=== PATIENT | female | born 2000 | race Caucasian/White ===

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

== ENCOUNTER 2022-10-23 07:26 | Outpatient (CLI) | payer MEDICAID, SELFPAY ==
--- NOTE | 2022-10-23 07:34 | XR_ITS ---
WS: [id number] Exam: XR knees AP WB w LT lmt ORTH Date/Time of Exam: 10/23/2022 7:35 AM Reason For Exam: left knee pain LEFT knee. No fracture or dislocation. The joint compartments are well preserved. No joint effusion. Normal soft tissues. AP and lateral images of the RIGHT knee are normal. IMPRESSION: 1. Normal RIGHT and LEFT knees.
== END 2022-10-23 07:27 | disposition home or self-care (01) ==
PROVIDERS: Visit Provider Student in an Organized Health Care Education/Training Program
DX: M25.562 Pain in left knee (principal); M25.561 Pain in right knee
CPT/HCPCS: 73560; 73565

== ENCOUNTER → 2023-07-07 07:51 | Outpatient (BNVA) | payer MEDICAID, SELFPAY | PROVIDERS: Visit Provider Nurse Practitioner Women's Health | DX: Z34.90 Encounter for supervision of normal pregnancy, unspecified, unspecified trimester (principal); N92.6 Irregular menstruation, unspecified | CPT/HCPCS: 80307; 81000; 81025; 84443; 85025; 86592; 86762; 86803; 86850; 86900; 87086; 87340; 87491; 87591; 87806 ==

== ENCOUNTER → 2023-07-20 12:10 | Outpatient (BNVA) | payer MEDICAID, SELFPAY | PROVIDERS: Visit Provider Obstetrics & Gynecology | DX: Z01.419 Encounter for gynecological examination (general) (routine) without abnormal findings (principal); Z34.90 Encounter for supervision of normal pregnancy, unspecified, unspecified trimester | CPT/HCPCS: 81000; 87624 ==

== ENCOUNTER → 2023-07-28 07:57 | Outpatient (BNVA) | payer MEDICAID, SELFPAY | PROVIDERS: Visit Provider Obstetrics & Gynecology | DX: Z34.90 Encounter for supervision of normal pregnancy, unspecified, unspecified trimester (principal) | CPT/HCPCS: 76815 ==

== ENCOUNTER → 2023-08-17 08:03 | Outpatient (BNVA) | payer MEDICAID, SELFPAY | PROVIDERS: Visit Provider Obstetrics & Gynecology | DX: Z34.90 Encounter for supervision of normal pregnancy, unspecified, unspecified trimester (principal) | CPT/HCPCS: 81000 ==

== ENCOUNTER → 2023-08-28 09:50 | Outpatient (BNVA) | payer MEDICAID, SELFPAY | PROVIDERS: Visit Provider Obstetrics & Gynecology | DX: Z34.90 Encounter for supervision of normal pregnancy, unspecified, unspecified trimester (principal) | CPT/HCPCS: 76805 ==

== ENCOUNTER → 2023-10-07 11:57 | Outpatient (BNVA) | payer MEDICAID, SELFPAY | PROVIDERS: Visit Provider Obstetrics & Gynecology | DX: Z34.90 Encounter for supervision of normal pregnancy, unspecified, unspecified trimester (principal) | CPT/HCPCS: 82950; 84315 ==

== ENCOUNTER → 2023-11-03 10:18 | Outpatient (BNVA) | payer MEDICAID, SELFPAY | PROVIDERS: Visit Provider Obstetrics & Gynecology | DX: Z34.90 Encounter for supervision of normal pregnancy, unspecified, unspecified trimester (principal) | CPT/HCPCS: 81000 ==

== ENCOUNTER → 2023-11-17 12:24 | Outpatient (BNVA) | payer MEDICAID, SELFPAY | PROVIDERS: Visit Provider Obstetrics & Gynecology | DX: Z36.4 Encounter for antenatal screening for fetal growth retardation (principal); Z3A.34 34 weeks gestation of pregnancy | CPT/HCPCS: 76816 ==

== ENCOUNTER → 2023-12-01 10:33 | Outpatient (BNVA) | payer MEDICAID, SELFPAY | PROVIDERS: Visit Provider Obstetrics & Gynecology | DX: Z34.90 Encounter for supervision of normal pregnancy, unspecified, unspecified trimester (principal) | CPT/HCPCS: 81000; 87081 ==

== ENCOUNTER → 2023-12-21 08:29 | Outpatient (BNVA) | payer MEDICAID, SELFPAY | PROVIDERS: Visit Provider Nurse Practitioner Women's Health | DX: O99.323 Drug use complicating pregnancy, third trimester (principal); O99.333 Smoking (tobacco) complicating pregnancy, third trimester | CPT/HCPCS: 84315; 85025 ==

== ENCOUNTER → 2023-12-28 09:56 | Outpatient (BNVA) | payer MEDICAID, SELFPAY | PROVIDERS: Visit Provider Obstetrics & Gynecology | DX: O99.333 Smoking (tobacco) complicating pregnancy, third trimester (principal) | CPT/HCPCS: 81000 ==

== ENCOUNTER 2024-01-05 01:07 | Inpatient (IN) | payer MEDICAID, SELFPAY ==
[2024-01-04 22:12] VITALS: BMI 29.6
[2024-01-04 22:33] VITALS: BP 126/73; PULSE 76
[2024-01-04 23:09] VITALS: BP 107/62; PULSE 81
[2024-01-04 23:19] VITALS: RESP 16
[2024-01-04 23:39] LABS: Basophils # 0.1 10^3/uL (0.0-0.1); Basophils % 0.5 %; Eosinophils # 0.1 10^3/uL (0.0-0.8); Eosinophils % 0.9 %; Hematocrit 33.8 % (36-47); Lymphocytes # 1.8 10^3/uL (0.8-4.8); Lymphocytes % 19.2 %; Mean Corpuscular HGB Conc 33.1 g/dL (30-55); Mean Corpuscular Hemoglobin 28.6 pg (27-33); Mean Corpuscular Volume 86.4 fl (85-98); Mean Platelet Volume 11.9 fL (7.4-10.4); Monocytes # 0.9 10^3/uL (0.2-0.9); Monocytes % 9.6 %; Neutrophils # 6.36 10^3/uL (1.8-7.7); Neutrophils % 69.3 %; Nucleated Red Blood Cells % 0 %; Platelet Count 122 10^3/cmm (157-399); Red Blood Count 3.91 10^6/uL (3.85-5.65); Red Cell Distribution Width 12.2 % (12.1-15.1); White Blood Count 9.18 10^3/uL (3.29-11.43)
[2024-01-05] VITALS (35 sets, daily range): BP systolic 96–146; BP diastolic 52–94; PULSE 54–102; RESP 16; TEMP 36.6–36.8; O2SAT 98; BMI 29.6
--- NOTE | 2024-01-05 01:10 | PM.OBGYHP ---
Providers/Chief Complaint Admitting Physician: Mesfin Fernandes MD Primary BUILDING COMPONENTS DESIGNER: Mesfin Fernandes MD Chief Complaint: CTX HPI BUILDING COMPONENTS DESIGNER History of Present Illness Salvador Franco is a 23 year old female EDC December 28, 2023 by LMP, c/w 14 w sono At 41 w 0 d No complications Admitted for induction of labor + regular uterine contractions + movements POBHx: x one, uncomplicated, female Present Details : 2 Para: 1 Labs Rubella: Non-Immune RPR: Negative GBS: Negative Medications/Allergies Home Medications Medication Instructions Recorded Confirmed Last Taken Type PNV 153-FA 400 mcg-om3 35 mg-dha tab PO 07/20/23 12/28/23 Unknown History 25 mg-epa 5 mg-fish oil chew tablet ( Gummies) Allergies Allergy/AdvReac Type Severity Reaction Status Date / Time No Known Allergies Allergy Verified 12/21/23 08:36 PFSH BUILDING COMPONENTS DESIGNER PFSH: Medical History 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 ([id number] (p.[id number]) in CFTR gene) Asthma No pertinent past medical history neghx: htn,dm,thyroid,dvt/pe, herpes -----denies partner with herpes Surgical History Hx of cholecystectomy (~2014) Hx of tonsillectomy (Unknown) Family History Father Hypertension Grandmother Hypertension Paternal Sister Thyroid disease Social History Smoking and tobacco/nicotine status: current some day tobacco/nicotine user (marijuana use) History History History 2 Term 1 0 Miscarriages/Ectopic 0 Living Children 1 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 Estimated Delivery Date Method Current WG Current Estimate 12/28/23 LMP (Uncertain) 41w 2d Specific Issues/Plans NAUSEA AND VOMITING IN : resolved CYSTIC FIBROSIS CARRIER: 07/07/23 POSITIVE c.1521_1523del, fetus low risk 1 in 1700 ASTHMA: controlled TOBACCO SMOKING AFFECTING : daily vaping, casual marijuana smoker DRUG USE COMPLICATING : THC use Vitals/I&O/Wt Last Vital Signs Temp 97.9 F 01/06/24 04:27 Pulse 69 01/06/24 04:27 Resp 16 01/06/24 04:27 BP 108/66 01/06/24 04:27 Pulse Ox 97 01/06/24 04:27 O2 Del Method Room Air 01/06/24 04:27 01/05/24 01/05/24 01/06/24 14:59 22:59 06:59 Output Total 800 / 800 Balance -800 / -800 Weight last 48 hrs Weight 162 lb Weight 162 lb Physical Exam Narrative: Weight 162 lbs; 5?2? VS normal General: comfortable, awake, alert Lungs: clear Cor: RRR FH 38 cm, cephalic Cervix: 2 cm / 75% / -3 / posterior Ext: normal External monitor: regular [facility] heart tracing good variability, + accelerations Data 01/06/24 01:02 Results Labs OB ([facility]): Obstetrics US 11/17/23 Blood Type O Positive 01/04/24 Antibody Screen Negative 01/04/24 Hct 31.6 % (36-47) L 01/06/24 Hgb 10.70 g/dL (11.27-16.99) L 01/06/24 Rho(D) Type Rh positive 01/04/24 Plt Count 124 10^3/cmm (157-399) L 01/06/24 Hep Bs Antigen Non-reactive (Nonreactive) 07/07/23 Hepatitis C Antibody Non-reactive (Nonreactive) 07/07/23 Rubella IgG Antibody 3.3 IU/mL (0.0-10.0) 07/07/23 RPR Nonreactive (Nonreactive) 07/07/23 HIV 1&2 Ab & HIV 1 Ag Non-reactive (Non-Reactiv) 07/07/23 TSH 0.40 uIU/mL (0.27-4.20) 07/07/23 C.trachomatis RNA (TMA) Not detected (NOT DETECTED) 07/07/23 N.gonorrhoeae RNA (TMA) Not detected (NOT DETECTED) 07/07/23 T. vaginalis Amp RNA Not detected (NOT DETECTED) 07/07/23 Chlamydia/GC Comment See note 07/07/23 Gest Glucose Tolerance 105 mg/dL (70-139) 10/07/23 HCG, Qual Positive (Negative) H 07/07/23 Urine Opiates Screen Negative ng/mL (Negative) 01/05/24 Ur Barbiturates Screen Negative ng/mL (Negative) 01/05/24 Ur Phencyclidine Scrn Negative ng/mL (Negative) 01/05/24 Ur Amphetamines Screen Negative ng/mL (Negative) 01/05/24 U Benzodiazepines Scrn Negative ng/mL (Negative) 01/05/24 Urine Cocaine Screen Negative ng/mL (Negative) 01/05/24 U Marijuana (THC) Screen Positive ng/mL (Negative) H 01/05/24 Micro Urine Specimen 07/07/23 Pap Smear Interpret See note 07/20/23 A&P Assessment and plan (1) Encounter for induction of labor: 41 w 0 d Fetus reassuring GBS negative Admitted for induction of labor Patient having regular UCs Plan expectant management for now h/o x one Rh + Attestations Medical Necessity Statement*: patient at 41 w 0 d, admitted for induction of labor Coding Level of Care Code Acute Code for Chg Fwd Diagnoses Encounter for induction of labor Z34.90 Time Spent (min) 60
[2024-01-05 02:31] LABS: Amphetamines Screen Urine Negative (Negative); Barbiturates Screen Urine Negative (Negative); Benzodiazepines Screen Urine Negative (Negative); Cocaine Screen Urine Negative (Negative); Opiate Screen Urine Negative (Negative); PCP Screen Urine Negative (Negative); THC Screen Urine Positive (Negative)
[2024-01-05] MEDS: fentaNYL 50 mcg/mL INJ 2mL IVP ×2 (08:44→10:10)
[2024-01-05 11:29] LABS: INR 0.97 (0.8-1.2)
[2024-01-05] MEDS: butorphanol 2 mg/mL SDV 1 mL 1 MG IVP (11:52)
--- NOTE | 2024-01-05 13:10 | PM.MISC ---
Miscellaneous Note Purpose of Documentation: Request for epidural Note: Had discussion with patient regarding her platelet levels (122 down from 148 10 days ago) combined with CF carrier status and its potential deleterious effects on platelet function. With patient's last epidural her platelet dropped from 157 to 107 overnight. Adds concern that her platelet may fall lower than 122 with catheter still in situ. Patient elected to try to proceed with natural at this time.
--- NOTE | 2024-01-05 14:05 | PM.DELIVERY ---
Delivery Note: Date of delivery: January 05, 2024 Pre-delivery diagnoses: 41 w 0 d admitted for induction of labor spontaneous uterine contractions cervix 2 cm Post-delivery diagnoses: 41 w 0 d admitted for induction of labor spontaneous uterine contractions vaginal delivery Procedure: vaginal delivery Op report anesthesia: None Delivering Physician: Mesfin Fernandes MD Estimated blood loss (mL): 300 Findings: , vigorous male Normal placenta and cord No episiotomy / lacerations EBL: 300 cc No complications Pre-Delivery Course: normal labor course Delivery: vaginal Post-Delivery Status: good History History History 2 Term 1 0 Miscarriages/Ectopic 0 Living Children 1 A&P Assessment and plan (1) Vaginal delivery: Coding Level of Care Code Acute Code for Chg Fwd Diagnoses Vaginal delivery O80 Time Spent (min) 60
--- NOTE | 2024-01-05 15:47 | PC.NURSE ---
Children Division in room at this time
[2024-01-05] MEDS: ibuprofen 800 mg tablet PO ×2 (18:22→20:59)
[2024-01-05] MEDS: ferrous sulfate EC 325 mg Tablet PO (18:23)
[2024-01-05] MEDS: docusate sodium 100 mg Capsule PO (18:23)
[2024-01-05] MEDS: benzocaine-menthol 78 gm Canister 1 SPRAY TOPICAL (18:32)
[2024-01-06 01:44] LABS: Hematocrit 31.6 % (36-47); Mean Corpuscular HGB Conc 33.9 g/dL (30-55); Mean Corpuscular Hemoglobin 29.3 pg (27-33); Mean Corpuscular Volume 86.6 fl (85-98); Mean Platelet Volume 12.8 fL (7.4-10.4); Platelet Count 124 10^3/cmm (157-399); Red Blood Count 3.65 10^6/uL (3.85-5.65); Red Cell Distribution Width 12.1 % (12.1-15.1); White Blood Count 12.03 10^3/uL (3.29-11.43)
[2024-01-06 04:27] VITALS: BP 108/66; PULSE 69; RESP 16; TEMP 36.6; O2SAT 97
[2024-01-06] MEDS: ferrous sulfate EC 325 mg Tablet PO (08:44)
[2024-01-06] MEDS: docusate sodium 100 mg Capsule PO (08:44)
[2024-01-06] MEDS: PRENATAL VIT NO.130/IRON/FOLIC 1 EACH TABLET PO (08:44)
[2024-01-06] MEDS: ibuprofen 800 mg tablet PO (08:45)
[2024-01-06 11:25] VITALS: BP 112/49; PULSE 79; RESP 16; TEMP 36.5; O2SAT 98
--- NOTE | 2024-01-06 13:10 | PM.OBGYPN ---
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 fundus firm Ext: no edema; nontender Data 01/06/24 01:02 A&P Assessment and plan (1) Vaginal delivery: PPD #1 doing well discharge to home today instructions and precautions given call/return if fever, chills, headache, blurry vision, nausea, vomiting, abdominal pain; vaginal bleeding or discharge; shortness of breath, chest pain, leg pains or swelling; inability to void, perineal pain or swelling; feelings of depression or mood changes; thoughts of suicide or harming others; inability to care for baby. f/u in 6 weeks or PRN Attestations Medical Necessity Statement*: patient s/p vaginal delivery, plan to discharge to home today Coding Level of Care Code Acute Code for Chg Fwd Diagnoses Vaginal delivery O80 Time Spent (min) 20
--- NOTE | 2024-01-06 14:10 | PM.OBGYDC ---
Discharge Providers SITE DAMAGE PREVENTION TECHNICIAN Date of Admission: 01/05/24 01:07 Date of Discharge: 01/06/24 Attending Provider at Admission: Mesfin Fernandes MD Attending Provider at Discharge: Mesfin Fernandes MD Consults: none Primary SITE DAMAGE PREVENTION TECHNICIAN: Mesfin Fernandes MD Diagnoses at Discharge Discharge Diagnosis (1) Vaginal delivery: Details from hospital stay: 23 y.o. EDC December 28, 2023 by LMP, c/w 14 w sono At 41 w 0 d No complications Admitted for induction of labor + regular uterine contractions + movements patient progressed on her own fetus was reassuring throughout patient delivered vaginally without any complications, with no lacerations She did well and was discharged to home on the first day Status: Acute Reason for Visit Reason for Visit: CTX Brief History: 23 y.o. EDC December 28, 2023 by LMP, c/w 14 w sono At 41 w 0 d No complications Admitted for induction of labor Hospital Course Hospital Course 23 y.o. EDC December 28, 2023 by LMP, c/w 14 w sono At 41 w 0 d No complications Admitted for induction of labor + regular uterine contractions + movements patient progressed on her own fetus was reassuring throughout patient delivered vaginally without any complications, with no lacerations She did well and was discharged to home on the first day Information Peripartum Data: Delivery Method: Vaginal Laceration description: None Episiotomy description: None complications: none Physical Exam Narrative: afebrile, VS normal comfortable, awake, alert Abd: soft, nontender. fundus firm Ext: no edema; nontender History History History 2 Term 1 0 Miscarriages/Ectopic 0 Living Children 1 Discharge Data Studies Completed and Pending Laboratory Results WBC 12.03 10^3/uL (3.29-11.43) H 01/06/24 01:02 RBC 3.65 10^6/uL (3.85-5.65) L 01/06/24 01:02 Hgb 10.70 g/dL (11.27-16.99) L 01/06/24 01:02 Hct 31.6 % (36-47) L 01/06/24 01:02 MCV 86.6 fl (85-98) 01/06/24 01:02 MCH 29.3 pg (27-33) 01/06/24 01:02 MCHC 33.9 g/dL (30-55) 01/06/24 01:02 RDW 12.1 % (12.1-15.1) 01/06/24 01:02 Plt Count 124 10^3/cmm (157-399) L 01/06/24 01:02 MPV 12.8 fL (7.4-10.4) H 01/06/24 01:02 Neut % (Auto) 69.3 % 01/04/24 23:15 Lymph % (Auto) 19.2 % 01/04/24 23:15 Ross % (Auto) 9.6 % 01/04/24 23:15 Eos % (Auto) 0.9 % 01/04/24 23:15 Baso % (Auto) 0.5 % 01/04/24 23:15 Neut # (Auto) 6.36 10^3/uL (1.8-7.7) 01/04/24 23:15 Lymph # (Auto) 1.8 10^3/uL (0.8-4.8) 01/04/24 23:15 Ross # (Auto) 0.9 10^3/uL (0.2-0.9) 01/04/24 23:15 Eos # (Auto) 0.1 10^3/uL (0.0-0.8) 01/04/24 23:15 Baso # (Auto) 0.1 10^3/uL (0.0-0.1) 01/04/24 23:15 Nucleated RBC % (auto) 0 % 01/04/24 23:15 Nucleated RBCs # 0.0 /100WBC 01/04/24 23:15 PT 13.10 SECONDS (12.1-14.9) 01/05/24 11:10 INR 0.97 (0.8-1.2) 01/05/24 11:10 Urine Opiates Screen Negative ng/mL (Negative) 01/05/24 01:51 Ur Barbiturates Screen Negative ng/mL (Negative) 01/05/24 01:51 Ur Phencyclidine Scrn Negative ng/mL (Negative) 01/05/24 01:51 Ur Amphetamines Screen Negative ng/mL (Negative) 01/05/24 01:51 U Benzodiazepines Scrn Negative ng/mL (Negative) 01/05/24 01:51 Urine Cocaine Screen Negative ng/mL (Negative) 01/05/24 01:51 U Marijuana (THC) Screen Positive ng/mL (Negative) H 01/05/24 01:51 Blood Type O Positive 01/04/24 23:15 Rho(D) Type Rh positive 01/04/24 23:15 Antibody Screen Negative 01/04/24 23:15 Procedures Performed vaginal delivery Vitals Last Vital Signs Temp 98.3 F 01/06/24 15:27 Pulse 107 H 01/06/24 15:27 Resp 15 01/06/24 15:27 BP 115/72 01/06/24 15:27 Pulse Ox 98 01/06/24 15:27 O2 Del Method Room Air 01/06/24 14:47 Results Labs OB ([facility]): Obstetrics US 11/17/23 Blood Type O Positive 01/04/24 Antibody Screen Negative 01/04/24 Hct 31.6 % (36-47) L 01/06/24 Hgb 10.70 g/dL (11.27-16.99) L 01/06/24 Rho(D) Type Rh positive 01/04/24 Plt Count 124 10^3/cmm (157-399) L 01/06/24 Hep Bs Antigen Non-reactive (Nonreactive) 07/07/23 Hepatitis C Antibody Non-reactive (Nonreactive) 07/07/23 Rubella IgG Antibody 3.3 IU/mL (0.0-10.0) 07/07/23 RPR Nonreactive (Nonreactive) 07/07/23 HIV 1&2 Ab & HIV 1 Ag Non-reactive (Non-Reactiv) 07/07/23 TSH 0.40 uIU/mL (0.27-4.20) 07/07/23 C.trachomatis RNA (TMA) Not detected (NOT DETECTED) 07/07/23 N.gonorrhoeae RNA (TMA) Not detected (NOT DETECTED) 07/07/23 T. vaginalis Amp RNA Not detected (NOT DETECTED) 07/07/23 Chlamydia/GC Comment See note 07/07/23 Gest Glucose Tolerance 105 mg/dL (70-139) 10/07/23 HCG, Qual Positive (Negative) H 07/07/23 Urine Opiates Screen Negative ng/mL (Negative) 01/05/24 Ur Barbiturates Screen Negative ng/mL (Negative) 01/05/24 Ur Phencyclidine Scrn Negative ng/mL (Negative) 01/05/24 Ur Amphetamines Screen Negative ng/mL (Negative) 01/05/24 U Benzodiazepines Scrn Negative ng/mL (Negative) 01/05/24 Urine Cocaine Screen Negative ng/mL (Negative) 01/05/24 U Marijuana (THC) Screen Positive ng/mL (Negative) H 01/05/24 Micro Urine Specimen 07/07/23 Pap Smear Interpret See note 07/20/23 Discharge Plan Discharge Patient Disposition: Home Condition: Stable Prescriptions: Continued Gummies 400 mcg-35 mg- 25 mg-5 mg tablet,chewable PO Discharge Orders: Discharge Order (Routine); Ordered 01/06/24 Ordered By: Mesfin Fernandes Referrals: Mesfin Fernandes MD [Physician] - 02/17/24 1:00 pm Discharge Diet: Usual diet Discharge Activity: Increase activity as tolerated Patient Instructions: Depression (DC), Bleeding (DC), Preeclampsia and Eclampsia After Delivery (GEN), Hemorrhage (DC), OB Discharge Report, OB Food/Drug Interaction Guide, OB Care at Home, Opioid Safety, OB Home Care, OB Vaginal Deliveries - [facility] Discharge Attestations SITE DAMAGE PREVENTION TECHNICIAN Time Spent in Discharge Care*: less than 30 min Coding Level of Care Code Acute Code for Chg Fwd Diagnoses Vaginal delivery O80 Time Spent (min) 20
[2024-01-06 14:47] VITALS: BP 115/72; PULSE 107; RESP 15; TEMP 36.8; O2SAT 98
[2024-01-06 15:27] VITALS: BP 115/72; PULSE 107; RESP 15; TEMP 36.8; O2SAT 98
== END 2024-01-06 15:25 | disposition home or self-care (01) | DRG 807 ==
LOC: OPOB 09:11 → OBGYN 09:11
PROVIDERS: Anesthesiology; Admitting Provider Obstetrics & Gynecology; Visit Provider Obstetrics & Gynecology
DX: O48.0 Post-term pregnancy (principal); Z37.0 Single live birth; Z3A.41 41 weeks gestation of pregnancy
CPT/HCPCS: 36415; 59409; 80306; 85025; 85027; 85610; 86850; 86900; 98960; J0595; J3010